=== PATIENT | female | born 1975 | race Caucasian/White ===

== ENCOUNTER 2023-07-15 15:22 | Outpatient (CLI) | payer OTHER, SELFPAY ==
--- NOTE | ~2023-07-15 | MR_ITS ---
MRI of the right knee Clinical history: Pain Technique: Coronal proton density and proton density-weighted images, sagittal proton-density and T2 fat-sat images, and axial proton-density fat-saturated images were acquired. Findings: Anterior and posterior cruciate ligaments are intact. Medial collateral ligament and the la teral collateral ligament complex are intact. Popliteus tendon is intact. Probable free edge tear of the body segment of the medial meniscus. Lateral meniscus intact. There is high-grade chondromalacia over the medial patellar facet. There is focal high-grade chondral lesion at the inferior aspect of the femoral trochlea centrally. Articular cartilage in the medial l ateral compartments is relatively well-preserved. Extensor mechanism is intact. Moderate joint effusion present. No Ariza's cyst. Impression: Probable free edge tear of the body segment of the medial meniscus. High-grade chondromalacia of the patellofemoral compartment, as detailed above. Moderate joint effusion. Reviewed, dictated and finalized at [facility]. Impression: Probable free edge tear of the body segment of the medial meniscus. High-grade chondromalacia of the patellofemoral compartment, as detailed above. Moderate joint effusion.
== END 2023-07-15 15:23 ==
LOC: GOSHIMG 15:28
PROVIDERS: PCP Physician Assistant; Visit Provider Physician Assistant
DX: M94.261 Chondromalacia, right knee (principal); M25.461 Effusion, right knee
CPT/HCPCS: 73721